=== PATIENT | female | born 1995 | race Asian ===

== ENCOUNTER 2022-09-24 14:37 | Observation (INO) | payer MEDICARE ==
[~2022-09-24] VITALS: Ht 170 cm; Wt 64.9 kg
[2022-09-24] MEDS ORDERED: CEFAZOLIN 2,000 MG in DEXT 5% WATER 100 ML IV NR (16:00)
[2022-09-24] MEDS ORDERED: LACTATED RINGERS 1,000 ML IV SCH (17:00)
[2022-09-24 17:22] LABS: CLARITY URINE CLEAR (CLEAR); COLOR URINE YELLOW (YELLOW); KETONES URINE NEGATIVE (NEGATIVE); LEUKOCYTE ESTERASE URINE 3+ (NEGATIVE); NITRITE URINE NEGATIVE (NEGATIVE); OCCULT BLOOD URINE NEGATIVE (NEGATIVE); PH URINE 6.5 (4.5-8.0); PROTEIN URINE NEGATIVE (NEGATIVE); SPECIFIC GRAVITY URINE 1.009 (1.005-1.030); UROBILINOGEN URINE 0.2 E.U./dL (0.2-1.0)
== END 2022-09-24 18:08 | disposition home or self-care (01) ==
LOC: 8 EST LDRP 14:37
PROVIDERS: ADMIT Obstetrics & Gynecology; ATTEND Obstetrics & Gynecology
DX: O62.9 Abnormality of forces of labor, unspecified (principal); Z3A.37 37 weeks gestation of pregnancy
CPT/HCPCS: 59025; 81003; 96361; 96365; G0378; J0690; J7060; 96360; 99281; J7120

== ENCOUNTER 2022-09-27 05:50 | Inpatient (IN) | payer MEDICARE ==
[~2022-09-27] VITALS: Ht 162.6 cm; Wt 64.4 kg
[2022-09-27] MEDS ORDERED: LACTATED RINGERS 1,000 ML IV NR (06:15)
[2022-09-27] MEDS ORDERED: LIDOCAINE HCL 1% 20ML VIAL (Pyxis) INJ INFIL SCH (07:00)
[2022-09-27] MEDS ORDERED: CARBOPROST TROMETHAMINE 250 MCG/ML AMPUL IM PRN (07:00)
[2022-09-27] MEDS ORDERED: METHYLERGONOVINE MALEATE 0.2 MG/ML IM PRN (07:00)
[2022-09-27] MEDS ORDERED: OXYTOCIN 30 UNITS/500ML NS PMX 500 ML IV SCH ×2 (07:00→20:15)
[2022-09-27] MEDS ORDERED: PENICILLIN G POTASSIUM 5 MMU in DEXT 5% WATER 100 ML IV SCH (07:00)
[2022-09-27] MEDS ORDERED: NALOXONE HCL 0.4 MG/ML 1ML VIAL IM PRN (07:00)
[2022-09-27] MEDS ORDERED: LACTATED RINGERS 1,000 ML IV SCH (07:00)
[2022-09-27 07:45] LABS: BASOPHILS % 0.5 % (0.0-2.0); EOSINOPHILS % 0.7 % (0.0-5.0); HEMATOCRIT. 37.6 % (36.0-48.0); HEMOGLOBIN. 12.8 g/dL (12.0-16.0); LYMPHOCYTES % 31.2 % (20.0-50.0); MEAN PLATELET VOLUME 9.1 fl (7.4-10.4); MONOCYTES % 7.1 % (2.0-8.0); NEUTROPHILS % 60.5 % (40.0-76.0); PLATELET 187 x1000/uL (130-400); RED CELL DISTRIBUTION WIDTH 12.7 % (11.6-14.6)
[2022-09-27] MEDS: BUTORPHANOL TARTRATE 2 MG/ML VIAL IV PRN ×2 (07:49→12:04)
[2022-09-27 07:52] LABS: CLARITY URINE CLEAR (CLEAR); COLOR URINE YELLOW (YELLOW); KETONES URINE NEGATIVE (NEGATIVE); LEUKOCYTE ESTERASE URINE TRACE (NEGATIVE); NITRITE URINE NEGATIVE (NEGATIVE); OCCULT BLOOD URINE 2+ (NEGATIVE); PH URINE 6.5 (4.5-8.0); PROTEIN URINE NEGATIVE (NEGATIVE); SPECIFIC GRAVITY URINE 1.014 (1.005-1.030); UROBILINOGEN URINE 0.2 E.U./dL (0.2-1.0)
[2022-09-27 07:57] LABS: INR 0.9; PARTIAL THROMBOPLASTIN TIME 27.1 sec (23.4-31.0); PROTHROMBIN TIME 9.8 sec (9.6-11.0)
[2022-09-27 08:18] LABS: *AMPHETAMINES SCREEN URINE NEGATIVE (NEGATIVE); *BARBITURATES SCREEN URINE NEGATIVE (NEGATIVE); *BENZODIAZEPINES SCREEN URINE NEGATIVE (NEGATIVE); *COCAINE SCREEN URINE NEGATIVE (NEGATIVE); CANNABINOID URINE SCREEN NEGATIVE (NEGATIVE); METHADONE URINE SCREEN NEGATIVE (NEGATIVE); OPIATES URINE SCREEN NEGATIVE (NEGATIVE); PHENCYCLIDINE URINE SCREEN NEGATIVE (NEGATIVE)
[2022-09-27] MEDS ORDERED: PENICILLIN G POTASSIUM 2.5 MMU in DEXTROSE 5% WATER 50 ML IV SCH (12:00)
[2022-09-27] MEDS: LACTATED RINGERS 1,000 ML IV SCH (12:05)
[2022-09-27] MEDS ORDERED: FENTANYL CITRATE/PF 50MCG/ML 2ML VIAL ONE (13:59)
[2022-09-27] MEDS ORDERED: ROPIVACAINE HCL/PF EPIDURAL 200 ML EPI ONE (13:59)
[2022-09-27] MEDS ORDERED: LIDOCAINE HCL/PF 1% 10 MG/ML 5ML VIAL ONE (14:00)
[2022-09-27] MEDS ORDERED: HEMORRHOIDAL SUPP PR PRN (20:15)
[2022-09-27] MEDS ORDERED: GLYCERIN/WITCH HAZEL LEAF MEDICATED PAD TOP PRN (20:15)
[2022-09-27] MEDS ORDERED: LANOLIN OINT 7GM TUBE TOP PRN (20:15)
[2022-09-27] MEDS ORDERED: ACETAMINOPHEN WITH CODEINE 300/30MG TABLET PO PRN (20:15)
[2022-09-27] MEDS ORDERED: IBUPROFEN 400MG TABLET PO PRN (20:15)
[2022-09-27] MEDS ORDERED: BENZOCAINE/LANOLIN/ALOE VERA SPRAY TOP PRN (20:15)
[2022-09-27] MEDS ORDERED: DIPHENHYDRAMINE 25MG CAPSULE PO PRN (20:15)
[2022-09-27] MEDS ORDERED: RHO(D) IMMUNE GLOBULIN 300 MCG/SYR IM PRN (20:15)
[2022-09-27] MEDS ORDERED: BISACODYL 10MG SUPP PR PRN (20:15)
[2022-09-27 21:45] VITALS: BP 117/76
[2022-09-27] MEDS: SIMETHICONE 80MG TABLET CHEW PO SCH (23:01)
[2022-09-27] MEDS: MAGNESIUM/ALUMINUM HYDROXIDE/SIMETHICONE 30ML UDC PO SCH (23:01)
[2022-09-27] MEDS: DOCUSATE SODIUM 100MG CAPSULE PO SCH (23:01)
[2022-09-27] MEDS: IBUPROFEN 800MG TABLET PO PRN (23:02)
[2022-09-27 23:30] VITALS: BP 98/75
[2022-09-28 04:00] VITALS: BP 117/75
[2022-09-28] MEDS: IBUPROFEN 800MG TABLET PO PRN ×3 (07:25→20:45)
[2022-09-28] MEDS: MAGNESIUM/ALUMINUM HYDROXIDE/SIMETHICONE 30ML UDC PO SCH ×3 (07:30→16:53)
[2022-09-28 07:35] LABS: BASOPHILS % 0.2 % (0.0-2.0); EOSINOPHILS % 0.1 % (0.0-5.0); HEMATOCRIT. 32.3 % (36.0-48.0); HEMOGLOBIN. 10.9 g/dL (12.0-16.0); LYMPHOCYTES % 18.6 % (20.0-50.0); MEAN CORPUSCULAR VOLUME 94.3 fL (81.0-99.0); MEAN PLATELET VOLUME 9.1 fl (7.4-10.4); MONOCYTES % 6.1 % (2.0-8.0); PLATELET 157 x1000/uL (130-400); RED BLOOD CELL COUNT 3.42 mill/uL (4.2-5.4); RED CELL DISTRIBUTION WIDTH 12.6 % (11.6-14.6)
[2022-09-28 08:00] VITALS: BP 102/69
[2022-09-28] MEDS ORDERED: PRENATAL VIT/FE FUMARATE/FA TABLET PO SCH (09:00)
[2022-09-28] MEDS: SIMETHICONE 80MG TABLET CHEW PO SCH ×3 (09:10→16:53)
[2022-09-28] MEDS: FERROUS SULFATE 325MG TABLET PO SCH ×3 (09:10→16:53)
[2022-09-28] MEDS ORDERED: INFLUENZA VACCINE 05/PF 0.5 ML SYRINGE IM ONE (10:00)
[2022-09-28 16:00] VITALS: BP 105/77
[2022-09-28 20:00] VITALS: BP 114/76
[2022-09-28] MEDS: DOCUSATE SODIUM 100MG CAPSULE PO SCH (20:45)
[2022-09-29 02:30] VITALS: BP 110/74
[2022-09-29] MEDS: IBUPROFEN 800MG TABLET PO PRN (02:36)
[2022-09-29] MEDS ORDERED: MULT-1146 MT (07:07)
[2022-09-29] MEDS ORDERED: FERR-63 PO (07:07)
[2022-09-29] MEDS ORDERED: IBUP-2030 PO (07:07)
[2022-09-29 08:00] VITALS: BP 115/71
[2022-10-01 22:38] LABS: HEPATITIS B SURFACE ANTIGEN NEGATIVE
== END 2022-09-29 10:50 | disposition home or self-care (01) | DRG 560 ==
LOC: 8 EST LDRP 05:50 → OBSVTOIN 05:50 → 8EST 21:35
PROVIDERS: ADMIT Obstetrics & Gynecology; ATTEND Obstetrics & Gynecology
PROC: 10E0XZZ Delivery of Products of Conception, External Approach (ICD-10-PCS; principal; 2022-09-27)
PROC: 0KQM0ZZ Repair Perineum Muscle, Open Approach (ICD-10-PCS; 2022-09-27)
PROC: 3E0R3BZ Introduction of Anesthetic Agent into Spinal Canal, Percutaneous Approach (ICD-10-PCS; 2022-09-27)
PROC: 00HU33Z Insertion of Infusion Device into Spinal Canal, Percutaneous Approach (ICD-10-PCS; 2022-09-27)
DX: O42.92 Full-term premature rupture of membranes, unspecified as to length of time between rupture and onset of labor (principal); Z37.0 Single live birth; O70.1 Second degree perineal laceration during delivery; O90.81 Anemia of the puerperium; Z3A.39 39 weeks gestation of pregnancy; Z20.822 Contact with and (suspected) exposure to COVID-19
CPT/HCPCS: 36415; 80305; 81003; 85025; 86592; 86703; 86762; 86850; 86900; 87340; 87426; 90686; 99281; G0378; J0595; J2540; J2795; J3010; J3490; J7060; J7120; A4315; J2590